=== PATIENT | female | born 1995 ===

== ENCOUNTER 2018-10-10 22:18 | Emergency (ER) | payer SELFPAY ==
[2018-10-10 22:48] VITALS: BP 122/74; PULSE 84; RESP 18; TEMP 98.5; O2SAT 99
--- NOTE | 2018-10-10 23:00 | ED PDOC ---
HPI: CCC, URI, Sore Throat Time Seen by Provider: 10/10/18 22:54 Chief Complaint (Nursing): ENT Problem Chief Complaint (Provider): sore throat /cough History Per: Patient (23 y/o female here in ED with who has coughing notes also she has cough/sore throat x 2 weeks. No fevers/chills. Is . NO OTC meds taken.) Past Medical History Reviewed: Historical Data, Nursing Documentation, Vital Signs Vital Signs: Last Vital Signs Temp 98.5 F 10/10/18 22:46 Pulse 84 10/10/18 22:46 Resp 18 10/10/18 22:46 BP 122/74 10/10/18 22:46 Pulse Ox 99 10/10/18 22:46 Primary Care Provider: FAMILY PROVIDER,NO - Family History Family History: States: No Known Family Hx - Home Medications Home Medications: Ambulatory Orders Medication Instructions Recorded Ibuprofen [Motrin] 600 mg PO Q8 PRN #15 tab 10/10/18 - Allergies Allergies/Adverse Reactions: Allergies Allergy/AdvReac Type Severity Reaction Status Date / Time No Known Allergies Allergy Verified 10/10/18 22:46 Review of Systems ROS Statement: Except As Marked, All Systems Reviewed And Found Negative ENT: Positive for: Throat Pain Respiratory: Positive for: Cough Physical Exam - Reviewed Nursing Documentation Reviewed: Yes Vital Signs Reviewed: Yes - Physical Exam Appears: Positive for: Well, Non-toxic, No Acute Distress Head Exam: Positive for: ATRAUMATIC, NORMAL INSPECTION, NORMOCEPHALIC Skin: Positive for: Normal Color, Warm, DRY Eye Exam: Positive for: EOMI, Normal appearance, PERRL ENT: Positive for: Normal ENT Inspection Neck: Positive for: Normal, Painless ROM Cardiovascular/Chest: Positive for: Regular Rate, Rhythm Respiratory: Positive for: CNT, Normal Breath Sounds Gastrointestinal/Abdominal: Positive for: Normal Exam, Soft Back: Positive for: Normal Inspection Extremity: Positive for: Normal ROM Neurological/Psych: Positive for: Awake, Alert, Normal Tone - ECG O2 Sat by Pulse Oximetry: 99 - Progress ED Course And Treament: influenza a/b neg rapid strep neg Disposition - Clinical Impression Clinical Impression: URI (upper respiratory infection) - Patient ED Disposition Is Patient to be Admitted: No - Disposition Disposition: Routine/Home Disposition Time: 23:31 Condition: FAIR Prescriptions: Ibuprofen [Motrin] 600 mg PO Q8 PRN #15 tab PRN Reason: Pain, Moderate (4-7) Instructions: Viral Upper Respiratory Infection, Adult (DC) Print Language: ENGLISH
== END 2018-10-10 23:45 | disposition home or self-care (01) ==
LOC: H.ER 22:18
DX: J06.9 Acute upper respiratory infection, unspecified (principal)